=== PATIENT | female | born 1985 | race Asian ===

== ENCOUNTER 2017-05-02 10:57 | Emergency (ER) | payer BC, OTHER ==
[2017-05-02 13:08] VITALS: BP 110/54
--- NOTE | 2017-05-02 13:39 | UC ---
Throat Pain/Nasal Jose R HPI - HPI Summary HPI Summary: Pt presents with 2 weeks of sinus pain/pressure/congestion. 2-3 days ago developed a dry cough. She is worried she has the flu. She is currently 35 weeks . She has not taken anything OTC. Denies fever, chills, SOB, chest pain, abdominal pain, n/v/d/c, or vaginal bleeding - History of Current Complaint Chief Complaint: UCRespiratory Stated Complaint: COUGH, AND SINUS CONGESTION Time Seen by Provider: 05/02/17 13:37 Hx Obtained From: Patient Onset/Duration: Gradual Onset Severity: Moderate Pain Intensity: 3 Pain Scale Used: 0-10 Numeric - Allergies/Home Medications Allergies/Adverse Reactions: Allergies Allergy/AdvReac Type Severity Reaction Status Date / Time No Known Allergies Allergy Verified 05/02/17 12:59 PMH/Surg Hx/FS Hx/Imm Hx Previously Healthy: Yes - Surgical History Surgical History: None - Social History Occupation: Employed Full-time Lives: With Family Alcohol Use: None Substance Use Type: None Smoking Status (MU): Never Smoked Tobacco Have You Smoked in the Last Year: No - Immunization History Most Recent Influenza Vaccination: 02/21/15 Most Recent Tetanus Shot: 02/05/15 Most Recent Pneumonia Vaccination: n/a Review of Systems Constitutional: Negative Skin: Negative Eyes: Negative ENT: Nasal Discharge, Sinus Congestion, Sinus Pain/Tenderness Respiratory: Cough Cardiovascular: Negative Gastrointestinal: Negative All Other Systems Reviewed And Are Negative: Yes Physical Exam Triage Information Reviewed: Yes Appearance: Well-Appearing, Well-Nourished Vital Signs: Initial Vital Signs Temp 98 F 05/02/17 13:01 Pulse 88 05/02/17 13:01 Resp 19 05/02/17 13:01 BP 110/54 05/02/17 13:01 Pulse Ox 97 05/02/17 13:01 Vital Signs Reviewed: Yes Eyes: Positive: Conjunctiva Clear. Negative: Conjunctiva Inflamed, Discharge ENT: Positive: Hearing grossly normal, Pharynx normal, Nasal congestion, Nasal drainage, TMs normal, Sinus tenderness, Uvula midline. Negative: Pharyngeal erythema, TM bulging, TM dull, TM red, Tonsillar swelling, Tonsillar exudate, Hoarse voice Neck: Positive: Supple, Nontender, No Lymphadenopathy Respiratory: Positive: Chest non-tender, Lungs clear, Normal breath sounds, No respiratory distress, No accessory muscle use Cardiovascular: Positive: RRR, No Murmur, Pulses Normal Neurological: Positive: Alert Psychological: Positive: Age Appropriate Behavior Skin: Negative: rashes Throat Pain/Nasal Course/Dx - Course Course Of Treatment: POC flu and strep negative. Sinusitis - rx for amoxicillin. - Differential Dx/Diagnosis Differential Diagnosis/HQI/PQRI: Influenza, Mononucleosis, Pharyngitis, Sinusitis, Tonsillitis, URI Provider Diagnoses: Sinusitis. Cough Discharge - Discharge Plan Condition: Stable Disposition: HOME Prescriptions: Amoxicillin PO (*) [Amoxicillin 500 MG CAP*] 500 mg PO Q12H #20 cap Patient Education Materials: Sinusitis (ED) Referrals: No Primary Care Phys,NOPCP [Primary Care Provider] - Additional Instructions: If you develop a fever, shortness of breath, chest pain, new or worsening symptoms - please call your PCP or go to the ED.
== END 2017-05-02 14:52 | disposition home or self-care (01) ==
LOC: UCEAST 10:57
DX: J32.9 Chronic sinusitis, unspecified (principal); R05 Cough
CPT/HCPCS: 87502; 87651; 99212; G0463

== ENCOUNTER 2017-06-01 05:03 | Inpatient (IN) | payer OTHER ==
[2017-06-01 06:50] LABS: ABS Basophils 0.1 10^3/ul (0-0.2); ABS Eosinophils 0 10^3/ul (0-0.6); ABS Lymphocytes 1.4 10^3/ul (1.0-4.8); ABS Monocytes 0.4 10^3/ul (0-0.8); ABS Neutrophils 4.7 10^3/ul (1.5-7.7); ABS Nucleated RBC 0 10^3/ul; Eosinophil % 0.8 % (0-6); Hematocrit 37 % (35-47); Hemoglobin 12.8 g/dl (12.0-16.0); Lymphocyte % 21.7 % (25-47); Mean Corpuscular HGB Conc 35 g/dl (31-36); Mean Corpuscular Hemoglobin 33 pg (27-31); Mean Corpuscular Volume 95 fL (80-97); Mean Platelet Volume 8 um3 (7.4-10.4); Nucleated Red Blood Cells % 0.1; Platelet Count 160 10^3/ul (150-450); Red Blood Count 3.87 10^6/ul (4.0-5.4); Red Cell Distribution Width 13 % (10.5-15); White Blood Count 6.7 10^3/ul (3.5-10.8)
[2017-06-01] MEDS ORDERED: Oxytocin in LR* 20 UNITS/1,000 ML BAG IVPB ONE (11:59)
[2017-06-01] MEDS ORDERED: Oxytocin in LR* 20 UNITS/1,000 ML BAG IVPB SCH (12:00)
[2017-06-01] MEDS ORDERED: Acetaminophen TAB* 325 MG PO PRN (14:30)
[2017-06-01] MEDS ORDERED: Glycerin ADULT SUPP PR PRN (14:30)
[2017-06-01] MEDS: Ibuprofen TAB* 600 MG PO PRN ×2 (16:20→22:10)
[2017-06-01] MEDS: Docusate CAP* 100 MG PO SCH (22:10)
[2017-06-02 08:07] LABS: Hematocrit 38 % (35-47); Hemoglobin 12.9 g/dl (12.0-16.0); Mean Corpuscular HGB Conc 34 g/dl (31-36); Mean Corpuscular Hemoglobin 32 pg (27-31); Mean Corpuscular Volume 94 fL (80-97); Mean Platelet Volume 8 um3 (7.4-10.4); Platelet Count 167 10^3/ul (150-450); Red Blood Count 3.99 10^6/ul (4.0-5.4); Red Cell Distribution Width 13 % (10.5-15)
[2017-06-02] MEDS: Docusate CAP* 100 MG PO SCH ×2 (08:20→20:26)
[2017-06-02] MEDS: Ibuprofen TAB* 600 MG PO PRN ×3 (08:20→20:26)
[2017-06-02] MEDS ORDERED: Ferrous Gluconate TAB* 324 MG TAB PO SCH (09:00)
[2017-06-02] MEDS ORDERED: Phenylephrine INJ* 10 MG/ML 1 ML VIAL (10 MG) ONE (09:53)
[2017-06-02] MEDS ORDERED: EPHEDrine (Pressors)* 50 MG/ML VIAL ONE (09:56)
[2017-06-03] MEDS: Ibuprofen TAB* 600 MG PO PRN ×2 (04:26→11:41)
[2017-06-03 08:20] VITALS: BP 97/60
[2017-06-03] MEDS: Docusate CAP* 100 MG PO SCH (09:26)
== END 2017-06-03 15:55 | disposition home or self-care (01) | DRG 775 ==
LOC: MCHOBOUT 05:03 → MCHOB 05:31
PROVIDERS: ADMIT Midwife; ATTEND Midwife
PROC: 10E0XZZ Delivery of Products of Conception, External Approach (ICD-10-PCS; principal; 2017-06-01)
PROC: 10907ZC Drainage of Amniotic Fluid, Therapeutic from Products of Conception, Via Natural or Artificial Opening (ICD-10-PCS; 2017-06-01)
PROC: 4A1HXCZ Monitoring of Products of Conception, Cardiac Rate, External Approach (ICD-10-PCS; 2017-06-01)
DX: O80 Encounter for full-term uncomplicated delivery (principal); Z37.0 Single live birth; Z3A.38 38 weeks gestation of pregnancy
CPT/HCPCS: 36415; 85025; 85027; 86850; 86900; 86901; A9270-GY